=== PATIENT | female | born 1965 | race Caucasian/White ===

== ENCOUNTER → 2018-12-04 | Outpatient (CLI) | payer BC ==
--- NOTE | 2018-12-04 10:12 | Diagnostic Imaging Report ---
Exam: Fine-needle aspiration biopsy of a left thyroid nodule. History: Patient with multiple thyroid nodules; most suspicious is a TRADS 3 in the interpolar region of the left thyroid lobe. Comparison: Outside ultrasound images. Findings: Informed consent was obtained. Sterile preparation and local anesthesia with 1% Xylocaine was accomplished. Utilizing ultrasound guidance 6 FNA's were obtained with 25-gauge needles of the interpolar left thyroid complex nodule measuring 3.2 x 2.5 cm. Pathology has deemed the specimens adequate for diagnosis. Patient tolerated the procedure well. Impression: Successful ultrasound-guided fine needle aspiration of a complex left thyroid nodule. Signed by: Dr. Main Peters DO on 12/04/2018 10:08 AM
== END ==
LOC: US 08:07
PROVIDERS: ATTEND Otolaryngology
DX: E04.2 Nontoxic multinodular goiter (principal)
CPT/HCPCS: 10005; 88112; 88172; 88173; 88305